=== PATIENT | male | born 1980 | race Caucasian/White ===

== ENCOUNTER 2016-05-16 18:23 | Emergency (ER) | payer OTHER, MEDICAID ==
[~2016-05-16] VITALS: Ht 180.3 cm; Wt 124.7 kg
[~2016-05-16 18:23] MED LIST: FAMO20TA5 PO
--- OUTSIDE RECORDS SUMMARY | 2016-05-16 18:28 | XMS REPORT ---
Author Author BONNIE GRAVES [facility] [place] eClinicalWorks Address Unknown Phone Unavailable Care Team Providers Care Cell Attendant Name Role Phone BONNIE GRAVES CP Unavailable Allergies, Adverse Reactions, Alerts Substance Reaction Event Type Penicillins neon rings on skin Non Drug Allergy Problems Problem Type Condition Code Onset Dates Condition Status Assessment Bronchitis J40 Active Medications Medication Code System Code Instructions Start Date End Date Status Dosage Zithromax Z-Derek [facility] [address]-41 250 MG Orally Once a day Feb 25, 2016 Mar 01, 2016 2 tablets on the first day, then 1 tablet daily for 4 days Promethazine-Codeine [facility] [address]-62 6.25-10 MG/5ML Orally q 4 h prn cough Feb 25, 2016 1-2 tsp Procedures Procedure Coding System Code Date Office Visit, Est Pt., Level 2 CPT-4 03402 Feb 25, 2016 Vital Signs Date/Time: Feb 25, 2016 Cardiac Monitoring Heart Rate 68 bpm Weight 287.1 lbs Height 71 in BMI 40.04 Index Blood Pressure Diastolic 81 mmHg Blood Pressure Systolic 130 mmHg Results No Known Results Summary Purpose eClinicalWorks Submission
[2016-05-16] MEDS ORDERED: NAPR500T2 PO (19:02)
[2016-05-16] MEDS ORDERED: Flexeril PO (19:02)
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
[2016-05-16 19:17] VITALS: BP 155/89
== END 2016-05-16 19:17 | disposition home or self-care (01) ==
LOC: EDUNIT# 18:23 → ER 18:25
DX: S13.9XXA Sprain of joints and ligaments of unspecified parts of neck, initial encounter (principal); V43.52XA Car driver injured in collision with other type car in traffic accident, initial encounter; Y92.414 Local residential or business street as the place of occurrence of the external cause; Y99.8 Other external cause status
CPT/HCPCS: 72125; 99282

== ENCOUNTER 2016-12-11 16:02 | Emergency (ER) | payer MEDICAID, OTHER ==
[~2016-12-11] VITALS: Ht 180.3 cm; Wt 104.3 kg
[~2016-12-11 16:02] MED LIST changes: +Flexeril PO; +NAPR500T2 PO
--- OUTSIDE RECORDS SUMMARY | 2016-12-11 16:07 | XMS REPORT ---
Author Author BONNIE GRAVES [facility] eClinicalWorks Address Unknown Phone Unavailable Care Team Providers Care Geotechnical Laboratory Technician Name Role Phone BONNIE GRAVES CP Unavailable Allergies, Adverse Reactions, Alerts Substance Reaction Event Type Penicillins neon rings on skin Non Drug Allergy Problems Problem Type Condition Code Onset Dates Condition Status Assessment Bronchitis J40 Active Medications Medication Code System Code Instructions Start Date End Date Status Dosage Zithromax Z-Derek [facility] [address]-67 250 MG Orally Once a day Feb 25, 2016 Mar 01, 2016 2 tablets on the first day, then 1 tablet daily for 4 days Promethazine-Codeine [facility] [address]-67 6.25-10 MG/5ML Orally q 4 h prn cough Feb 25, 2016 1-2 tsp Procedures Procedure Coding System Code Date Office Visit, Est Pt., Level 2 CPT-4 39852 Feb 25, 2016 Vital Signs Date/Time: Feb 25, 2016 Cardiac Monitoring Heart Rate 68 bpm Weight 287.1 lbs Height 71 in BMI 40.04 Index Blood Pressure Diastolic 81 mmHg Blood Pressure Systolic 130 mmHg Results No Known Results Summary Purpose eClinicalWorks Submission
--- OUTSIDE RECORDS SUMMARY | 2016-12-11 16:07 | XMS REPORT ---
Author Author WU FELIX Organization [facility] Address [address] [place] [address] Care Team Providers Care Subway Conductor Name Role Phone WU FELIX Unavailable PROBLEMS Type Condition ICD9-CM Code XVZ41-GO Code Onset Dates Condition Status SNOMED Code Problem Environmental allergies Z91.09 Active [id number] ALLERGIES Substance Reaction Event Type Date Status Penicillins neon rings on skin Non Drug Allergy Mar, Active SOCIAL HISTORY No smoking Hx information available PLAN OF CARE Activity Details Follow Up prn Reason: VITAL SIGNS Height 71 in 2016-03-31 Weight 286.6 lbs 2016-03-31 Temperature 97.6 degrees Fahrenheit 2016-03-31 Heart Rate 64 bpm 2016-03-31 Respiratory Rate 18 2016-03-31 BMI 39.97 kg/m2 2016-03-31 Blood pressure systolic 132 mmHg 2016-03-31 Blood pressure diastolic 76 mmHg 2016-03-31 MEDICATIONS Medication Instructions Dosage Frequency Start Date End Date Duration Status Singulair 10 MG Orally Once a day 1 tablet in the evening 24h Mar, 30 day(s) Active Doxycycline Hyclate 100 MG Orally every 12 hrs 1 capsule 12h Mar, Mar, 10 days Active Zyrtec Allergy 10 MG Orally Once a day 1 tablet 24h Mar, Apr, 30 day(s) Active Fluticasone Propionate 50 MCG/ACT Nasally Twice a day 1-2 spray in each nostril 12h Mar, 30 day(s) Active RESULTS No Results PROCEDURES Procedure Date Ordered Related Diagnosis Body Site DEPO MEDROL 40 MG/ML Mar 31, 2016 THER/PROPH/DIAG INJ, SC/IM Mar 31, 2016 Office Visit, Est Pt., Level 3 Mar 31, 2016 DEXAMETHASONE 20MG/5 ML (PER 1 MG) Mar 31, 2016 IMMUNIZATIONS Vaccine Route Administration Date Status DEXAMETHASONE 20MG/5 ML (PER 1 MG) IM Intramuscular Mar 31, 2016 Administered DEPO MEDROL 40 MG/ML IM Intramuscular Mar 31, 2016 Administered
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
[2016-12-11] MEDS ORDERED: ASPIRIN 81 MG CHEW (CHILDREN'S ASA) PO ONE (16:15)
[2016-12-11] MEDS ORDERED: LORazepam INJ 2 MG/ML (ATIVAN) VIAL ONE (16:15)
--- NOTE | 2016-12-11 16:15 | ED Chest Pain ---
General Stated Complaint: CHEST PAIN/TIGHTNESS Source: patient Exam Limitations: no limitations History of Present Illness Time seen by provider: 16:12 Initial Comments To ER with reports of central chest tightness and shortness of breath. This began about 325 this afternoon while he was walking back to work after being on his break. He is employed at [employer] and works both indoors and outdoors. He was not doing anything physically strenuous at the time of the onset of this pain. He states that while he was walking the pain went from absent to maximal intensity and under a minute and persisted for about 25 seconds and was associated with shortness of breath. He denies feeling anxious. He states that he still has the chest pain but currently only rated at 2 out of 10 and is without dyspnea. He has no personal history of heart disease. He see a nonsmoker. He states that over the past year he's lost about 90 pounds and exercises regularly. He states that his mother does have heart disease with early onset around age of 40. Timing/Duration: 1/2 hour, constant Severity/Quality: moderate, tightness Location: central Radiation: no radiation Activities at Onset: none ASA po CORK INSULATOR HELPER: No NTG SL CORK INSULATOR HELPER: No Associated Symptoms: No back pain, No diaphoresis, No dizziness, No nausea/ vomiting, shortness of breath Allergies and Home Medications Allergies Coded Allergies: Penicillins (Unverified Allergy, Mild, 06/12/09) Home Medications Naproxen 500 Mg Tablet.dr, 500 MG PO BID PRN for PAIN, #14 Prescribed by: MATILDE KNOTT on 05/16/161901 [ Flexeril ] , 5 MG PO TID PRN for PAIN, #21 Prescribed by: MATILDE KNOTT on 05/16/161901 Review of Systems Constitutional: see HPI EENTM: No Symptoms Reported Respiratory: See HPI, Shortness of Air Cardiovascular: See HPI, Chest Pain, Denies Edema, Denies Irregular Heart Rate , Denies Lightheadedness Gastrointestinal: No Symptoms Reported Genitourinary: No Symptoms Reported Musculoskeletal: no symptoms reported Skin: no symptoms reported Psychiatric/Neurological: No Symptoms Reported Endocrine: No Symptoms Reported Past Yuusmmf-Jibbyh-Dsyvrn Hx Patient Social History Recent Foreign Travel: No Contact w/Someone Who Travel: No Recent Hopitalizations: No Immunizations Up To Date Tetanus Booster (TDap): More than 5yrs Seasonal Allergies Seasonal Allergies: No Gastrointestinal Gastrointestinal Disorders: Gall Bladder Disease Musculoskeletal Musculoskeletal Disorders: Fractures Physical Exam Vital Signs Vital Sign - Last 12Hours 12/11/16 16:02 Temp 98.6 Pulse 96 Resp 18 B/P (MAP) 135/85 Pulse Ox 96 Capillary Refill : General Appearance: No Apparent Distress, WD/WN, Anxious HEENT: PERRL/EOMI, TMs Normal Neck: Full Range of Motion, Normal Inspection Respiratory: Normal Breath Sounds, No Accessory Muscle Use, No Respiratory Distress Cardiovascular: Regular Rate, Rhythm, Normal Peripheral Pulses Gastrointestinal: Normal Bowel Sounds, Non Tender, Soft Extremity: Normal Capillary Refill, Normal Inspection Neurologic/Psychiatric: Alert, Oriented x3, No Motor/Sensory Deficits Skin: Normal Color, Warm/Dry Progress/Results/Core Measures Results/Orders Lab Results Laboratory Tests Test 12/11/16 16:15 Range/Units White Blood Count 8.3 4.3-11.0 10^3/uL Red Blood Count 5.43 4.35-5.85 10^6/uL Hemoglobin 14.2 13.3-17.7 G/DL Hematocrit 43 40-54 % Mean Corpuscular Volume 79 L 80-99 FL Mean Corpuscular Hemoglobin 26 25-34 PG Mean Corpuscular Hemoglobin Concent 33 32-36 G/DL Red Cell Distribution Width 13.7 10.0-14.5 % Platelet Count 167 130-400 10^3/uL Mean Platelet Volume 9.9 7.4-10.4 FL Neutrophils (%) (Auto) 86 H 42-75 % Lymphocytes (%) (Auto) 5 L 12-44 % Monocytes (%) (Auto) 8 0-12 % Eosinophils (%) (Auto) 0 0-10 % Basophils (%) (Auto) 0 0-10 % Neutrophils # (Auto) 7.2 1.8-7.8 X 10^3 Lymphocytes # (Auto) 0.4 L 1.0-4.0 X 10^3 Monocytes # (Auto) 0.7 0.0-1.0 X 10^3 Eosinophils # (Auto) 0.0 0.0-0.3 10^3/uL Basophils # (Auto) 0.0 0.0-0.1 10^3/uL Neutrophils % (Manual) 88 % Lymphocytes % (Manual) 8 % Monocytes % (Manual) 4 % Blood Morphology Comment NORMAL Prothrombin Time 13.7 12.2-14.7 SEC INR Comment 1.0 0.8-1.4 Activated Partial Thromboplast Time 26 24-35 SEC D-Dimer 0.27 0.00-0.49 UG/ML Sodium Level 136 135-145 MMOL/L Potassium Level 3.8 3.6-5.0 MMOL/L Chloride Level 101 98-107 MMOL/L Carbon Dioxide Level 25 21-32 MMOL/L Anion Gap 10 5-14 MMOL/L Blood Urea Nitrogen 25 H 7-18 MG/DL Creatinine 1.09 0.60-1.30 MG/DL Estimat Glomerular Filtration Rate > 60 BUN/Creatinine Ratio 23 Glucose Level 104 70-105 MG/DL Calcium Level 9.1 8.5-10.1 MG/DL Magnesium Level 1.8 1.8-2.4 MG/DL Total Bilirubin 1.1 H 0.1-1.0 MG/DL Aspartate Amino Transf (AST/SGOT) 33 5-34 U/L Alanine Aminotransferase (ALT/SGPT) 47 0-55 U/L Alkaline Phosphatase 82 40-136 U/L Myoglobin 129.7 H 10.0-92.0 NG/ML Troponin I < 0.30 <0.30 NG/ML Total Protein 6.5 6.4-8.2 GM/DL Albumin 4.1 3.2-4.5 GM/DL My Orders Orders - MATILDE KNOTT APRN Cbc With Automated Diff (12/11/16 16:11) Magnesium (12/11/16 16:11) Ekg Tracing (12/11/16 16:11) Cardiac Profile 1 (12/11/16 16:11) Comprehensive Metabolic Panel (12/11/16 16:11) Myoglobin Serum (12/11/16 16:11) Protime With Inr (12/11/16 16:11) Partial Thromboplastin Time (12/11/16 16:11) Monitor-Rhythm Ecg Trace Only (12/11/16 16:11) Lipid Panel (12/12/16 06:00) Aspirin Chewable Tablet (Baby Aspirin Ch (12/11/16 16:15) Saline Lock/Iv-Start (12/11/16 16:11) Lorazepam Injection (Ativan Injection) (12/11/16 16:30) Lorazepam Injection (Ativan Injection) (12/11/16 16:15) Manual Differential (12/11/16 16:15) Fibrin Degradation Products (12/11/16 16:15) Chest Pa/Lat (2 View) (12/11/16 16:55) Medications Given in ED Current Medications Medications Dose Ordered Sig/Jono Route Start Time Stop Time Status Last Admin Dose Admin Aspirin 324 mg ONCE ONCE PO 12/11/16 16:15 12/11/16 16:16 DC 12/11/16 16:22 324 MG Lorazepam 0.5 mg ONCE ONCE IVP 12/11/16 16:30 12/11/16 16:31 DC 12/11/16 16:23 0.5 MG Vital Signs/I&O Vital Sign - Last 12Hours 12/11/16 16:02 Temp 98.6 Pulse 96 Resp 18 B/P (MAP) 135/85 Pulse Ox 96 Departure Communication (Admissions) Progress Notes 1801- he states that his chest pain is gone and he feels less "foggy headed". This is after the Ativan. Impression Impression: Primary Impression: Chest pain Disposition: 01 HOME, SELF-CARE Condition: Stable Departure-Patient Inst. Decision time for Depature: 17:58 Referrals: [facility] (PCP/Family) Primary Care Physician FRANCISCA CHAVARRIA MD FACP FAC CCDS Misty WAYNE MD, BASHAR J MD Patient Instructions: Chest Pain (DC) Add. Discharge Instructions: 1. Call one of the cardiologists of your choosing tomorrow to make an appointment for further testing 2. Return to ER for any concerns 3. MATILDE KNOTT FILLING STATION ATTENDANT Dec 11, 2016 16:15
[2016-12-11 16:27] LABS: BASOPHILS % (AUTO) 0 % (0-10); EOSINOPHILS % (AUTO) 0 % (0-10); LYMPHOCYTES # (AUTO) 0.4 X 10^3 (1.0-4.0); LYMPHOCYTES % (AUTO) 5 % (12-44); MEAN CORPUSCULAR HEMOGLOBIN 26 PG (25-34); MEAN CORPUSCULAR HGB CONC 33 G/DL (32-36); MEAN CORPUSCULAR VOLUME 79 FL (80-99); MEAN PLATELET VOLUME 9.9 FL (7.4-10.4); MONOCYTES # (AUTO) 0.7 X 10^3 (0.0-1.0); MONOCYTES % (AUTO) 8 % (0-12); NEUTROPHILS # (AUTO) 7.2 X 10^3 (1.8-7.8); NEUTROPHILS % (AUTO) 86 % (42-75); PLATELET COUNT 167 10^3/uL (130-400); RED BLOOD COUNT 5.43 10^6/uL (4.35-5.85); RED CELL DISTRIBUTION WIDTH 13.7 % (10.0-14.5); WHITE BLOOD COUNT 8.3 10^3/uL (4.3-11.0)
[2016-12-11] MEDS ORDERED: LORazepam INJ 2 MG/ML (ATIVAN) VIAL IVP ONE (16:30)
[2016-12-11 16:39] LABS: PROTHROMBIN TIME PATIENT 13.7 SEC (12.2-14.7)
[2016-12-11 16:43] LABS: ALANINE AMINOTRANSFERASE 47 U/L (0-55); ALBUMIN 4.1 GM/DL (3.2-4.5); ANION GAP 10 MMOL/L (5-14); ASPARTATE AMINO TRANSFERASE 33 U/L (5-34); BILIRUBIN,TOTAL 1.1 MG/DL (0.1-1.0); BLOOD UREA NITROGEN 25 MG/DL (7-18); BUN/CREATININE RATIO 23; CALCIUM 9.1 MG/DL (8.5-10.1); CARBON DIOXIDE 25 MMOL/L (21-32); CHLORIDE 101 MMOL/L (98-107); CREATININE SERUM 1.09 MG/DL (0.60-1.30); GFR ESTIMATED > 60; GLUCOSE 104 MG/DL (70-105); MAGNESIUM 1.8 MG/DL (1.8-2.4); POTASSIUM 3.8 MMOL/L (3.6-5.0); SODIUM 136 MMOL/L (135-145); TOTAL PROTEIN 6.5 GM/DL (6.4-8.2)
[2016-12-11 16:47] LABS: LYMPHOCYTES % (MANUAL) 8 %; NEUTROPHILS % (MANUAL) 88 %
[2016-12-11 16:49] LABS: MYOGLOBIN SERUM 129.7 NG/ML (10.0-92.0)
--- NOTE | 2016-12-11 17:39 | Diagnostic Imaging Report ---
INDICATION: Chest pain. COMPARISON: 11/28/2013. FINDINGS: Two views of the chest are obtained. Heart size is normal. The pulmonary vessels appear unremarkable. There is no pneumothorax, mediastinal widening, or pleural fluid demonstrated. The lungs are clear. Osseous structures appear unremarkable. IMPRESSION: No acute abnormality is demonstrated. Dictated by: Dictated on workstation # [id number]
[2016-12-11 18:56] VITALS: BP 105/74
== END 2016-12-11 18:56 | disposition home or self-care (01) ==
LOC: EDUNIT# 16:02 → ER 16:04
DX: R07.89 Other chest pain (principal); Z87.81 Personal history of (healed) traumatic fracture; Z87.19 Personal history of other diseases of the digestive system; Z82.49 Family history of ischemic heart disease and other diseases of the circulatory system
CPT/HCPCS: 36415; 71020; 80053; 83735; 83874; 84484; 85007; 85027; 85379; 85610; 85730; 93005; 93041; 96374

== ENCOUNTER 2022-01-30 18:17 | Emergency (ER) | payer MEDICAID, OTHER ==
[~2022-01-30 18:17] MED LIST changes: +NAPR-1073 PO; -NAPR500T2 PO
[2022-01-30] MEDS ORDERED: CEPHALEXIN 250 MG (KEFLEX) CAP PO SCH (18:30)
[2022-01-30] MEDS ORDERED: TETANUS,DIPTH,PERTUSS P/F (BOOSTRIX) 0.5 ML VIAL IM ONE (18:30)
[2022-01-30] MEDS ORDERED: CEPH500T PO (18:34)
--- NOTE | 2022-01-30 18:34 | ED Integumentary General ---
General Chief Complaint: Skin/Wound Problems Stated Complaint: GLASS IN RIGHT FOOT Nursing Triage Note: PT ARRIVAL TO ER VIA PRIVATE VEHICLE WITH COMPLAINT OF AVULSION TO BOTTOM OF RIGHT FOOT. PT WAS IN GARAGE AND STEPPED ON GLASS. PT WAS ABLE TO PULL GLASS OUT OF FOOT. NO BLEEDING AT THIS TIME. Source: patient Exam Limitations: no limitations History of Present Illness Date Seen by Provider: Jan 30, 2022 Time Seen by Provider: 18:31 Initial Comments To ER by private vehicle with reports of a puncture wound to the plantar surface of the right foot from a piece of glass in his garage. Tetanus is not up-to-date. This was bleeding extensively at home, he elevated the foot in route to the hospital and bleeding subsided. Timing/Duration: just prior to arrival, constant Severity: mild Location: feet Possible Cause: no cause identified Associated Symptoms: denies symptoms Allergies and Home Medications Allergies Coded Allergies: Penicillins (Unverified Allergy, Mild, 06/12/09) Patient Home Medication List Home Medication List Reviewed: Yes Naproxen (EC-Naprosyn) 500 Mg Tablet.dr, 500 MG PO BID PRN for PAIN Prescribed by: MATILDE KNOTT on 05/16/161901 [ Flexeril ] , 5 MG PO TID PRN for PAIN Prescribed by: MATILDE KNOTT on 05/16/161901 Review of Systems Review of Systems Constitutional: see HPI EENTM: see HPI Respiratory: no symptoms reported Cardiovascular: no symptoms reported Genitourinary: no symptoms reported Musculoskeletal: no symptoms reported Skin: see HPI Psychiatric/Neurological: No Symptoms Reported Endocrine: No Symptoms Reported Hematologic/Lymphatic: No Symptoms Reported Past Yrvshyc-Jjipel-Nuzsqp Hx Patient Social History Tobacco Use?: No Use of E-Cig and/or Vaping dev: No Substance use?: No Alcohol Use?: No Pt feels they are or have been: No Immunizations Up To Date Tetanus Booster (TDap): More than 5yrs Influenza Vaccine Up-to-Date: No; Not Current Seasonal Allergies Seasonal Allergies: No Past Medical History Surgeries: No Respiratory: No Cardiac: Yes (VARICOSE VEINS) Neurological: No Gastrointestinal: Yes Gall Bladder Disease Musculoskeletal: Yes (BROKEN NOSE, FX SKULL) Fractures Endocrine: No Cancer: No Psychosocial: No Integumentary: No Blood Disorders: No Physical Exam Vital Signs Vital Signs - First Documented 01/30/22 18:24 Temp 36.5 Pulse 82 Resp 18 B/P (MAP) 157/96 (116) Pulse Ox 99 O2 Delivery Room Air Capillary Refill : Less Than 3 Seconds General Appearance: WD/WN, no apparent distress Neck: non-tender, full range of motion Respiratory: no respiratory distress, no accessory muscle use Neurologic/Psychiatric: alert, normal mood/affect, oriented x 3 Skin: normal color, warm/dry Skin Problem Location: lower extremities Skin Problem Character: other (There is a 1 cm V-shaped laceration to the plantar surface of the arch of the right foot with no active bleeding at this time. Patient was able to remove the glass at home.) Progress/Results/Core Measures Results/Orders Vital Signs/I&O 01/30/22 18:24 Temp 36.5 Pulse 82 Resp 18 B/P (MAP) 157/96 (116) Pulse Ox 99 O2 Delivery Room Air Blood Pressure Mean: 116 Departure Communication (Admissions) Wound irrigated with chlorhexidine/saline solution, no heavy bleeding, antibiotic ointment applied then gauze then Coban. No primary closure. Impression Primary Impression: Puncture wound of foot Disposition: 01 HOME, SELF-CARE Condition: Stable Departure-Patient Inst. Decision time for Depature: 18:33 Referrals: [facility] ([place]P/Family) Primary Care Physician Patient Instructions: Wound Care Add. Discharge Instructions: Return to ER for any sign of infection such as redness swelling or increasing pain. Take the antibiotics as directed. Keep this covered with a dressing tonight, you can put just a simple Band-Aid over this tomorrow. All discharge instructions reviewed with patient and/or family. Voiced understanding. Scripts Cephalexin (Cephalexin) 500 Mg Tablet 500 MG PO TID, #14 TAB Prov: MATILDE KNOTT APRN 01/30/22 Work/School Note: Work Release Form Date Seen in the Emergency Department: Jan 30, 2022 Return to Work: Feb 02, 2022 MATILDE KNOTT APRN Jan 30, 2022 18:34
[2022-01-30 19:29] VITALS: BP 131/87
== END 2022-01-30 19:33 | disposition home or self-care (01) ==
LOC: EDUNIT# 18:17 → ER 18:19
DX: S91.331A Puncture wound without foreign body, right foot, initial encounter (principal); Z23 Encounter for immunization; Z28.310 Unvaccinated for COVID-19; W25.XXXA Contact with sharp glass, initial encounter; Y92.59 Other trade areas as the place of occurrence of the external cause
CPT/HCPCS: 90715; 99283

== ENCOUNTER → 2022-05-24 | Outpatient (CLI) | payer OTHER ==
[~2022-05-24] MED LIST changes: +CEPH500T PO
--- NOTE | 2022-05-24 14:03 | Diagnostic Imaging Report ---
EXAMINATION: CT abdomen and pelvis without contrast. TECHNIQUE: Multiple contiguous axial images were obtained through the abdomen and pelvis without the use of intravenous contrast. All CT scans use one or more of the following dose optimizing techniques: automated exposure control, MA and/or KvP adjustment based on patient size and exam type or iterative reconstruction. HISTORY: HERNIA COMPARISON: None available. FINDINGS: Lung bases: The lung bases are clear. Solid organs: The liver is normal. The gallbladder is normal. There is no biliary ductal dilation. Pancreas is normal. Spleen is normal. Adrenal glands are normal. The kidneys are normal without visualized calculus or hydronephrosis. Bowel: The stomach and small bowel are normal without obstruction. The colon and appendix are normal. Peritoneum: There is no intraperitoneal free fluid or free air. No suspicious lymphadenopathy. Vasculature: Normal without aneurysm. Musculoskeletal: No suspicious osseous lesion or compression fracture. There is a fat-containing periumbilical hernia through a 1.9 cm defect. Pelvis: The prostate gland is normal. The urinary bladder is normal. IMPRESSION: 1. No acute abnormality in the abdomen or pelvis. 2. A fat-containing periumbilical hernia through a 1.9 cm defect. Dictated by: Dictated on workstation # [id number]
== END ==
LOC: RAD 13:36
PROVIDERS: ATTEND Nurse Practitioner
DX: Z01.89 Encounter for other specified special examinations (principal); K42.9 Umbilical hernia without obstruction or gangrene
CPT/HCPCS: 74176

== ENCOUNTER 2022-11-29 05:29 | Outpatient (CLI) | payer OTHER ==
[~2022-11-29] VITALS: Ht 180.3 cm; Wt 136.4 kg
[2022-11-30] MEDS ORDERED: HYDR-3817 PO (10:25)
== END 2022-11-29 10:55 | disposition home or self-care (01) ==
LOC: PREOP 05:29
PROVIDERS: ATTEND Surgery
DX: Z01.818 Encounter for other preprocedural examination (principal)

== ENCOUNTER 2022-11-30 10:04 | Day surgery (SDC) | payer OTHER ==
[~2022-11-30] VITALS: Ht 180.3 cm; Wt 136.4 kg
[2022-11-30] VITALS (10 sets, daily range): BP systolic 107–146; BP diastolic 61–88
[2022-11-30] MEDS ORDERED: CLINDAMYCIN 600 MG/50 ML IVPB 50 ML IV ONE (10:15)
--- NOTE | 2022-11-30 10:24 | Progress Note-Pre Operative ---
Pre-Operative Progress Note Date H&P Reviewed: Nov 30, 2022 Time H&P Reviewed: 10:20 History & Physical: H&P Reviewed, Patient Examed, No changes noted Pre-Operative Diagnosis: Umbilical hernia LYNDSAY MENDOZA STOCKROOM COORDINATOR Nov 30, 2022 10:24
[2022-11-30] MEDS ORDERED: HYDR-3817 PO (10:25)
--- NOTE | 2022-11-30 10:25 | Discharge Inst-Surgical ---
D/C Lap Instructions-KIDO Reconcile Patient Problems Problems Reviewed?: Yes New, Converted, or Re-Newed RX: RX on Chart Follow Up Appt in 2 weeks Activity as tolerated No driving for 24 hours No driving while on pain medications Incentive Spirometry use every 2 hours while awake Regular Diet Symptoms to Report: Fever over 101 degree F, Nausea/Vomiting Infection Signs and Symptoms to report: Increased redness, Foul odor of wound, Increased drainage Bathing instructions: May shower Operative Area Clean/Dry; Keep incision clean/dry If any problems/questions: Contact your physician or go to Emergency Room LYNDSAY MENDOZA APRN Nov 30, 2022 10:25
[2022-11-30] MEDS ORDERED: HYDROcodone/ACETAMINOPHEN 5 MG/325 MG TABLET PO ONE (10:30)
[2022-11-30] MEDS ORDERED: morphine INJ 10 MG/ML 1ML (SYR OR VIAL) IVP PRN (10:30)
[2022-11-30] MEDS ORDERED: ACETAMINOPHEN 325 MG TABLET PO PRN (10:30)
[2022-11-30] MEDS ORDERED: ONDANSETRON 4 MG/2 ML (SDV) Z0FRAN IVP PRN ×2 (10:30→12:30)
[2022-11-30] MEDS ORDERED: LIDOCAINE 1% w/EPI 1:100,000 20 ML VIAL ONE (10:42)
[2022-11-30] MEDS: LACTATED RINGERS 1,000 ML IV PRN ×2 (10:47→11:50)
[2022-11-30] MEDS ORDERED: MIDAZOLAM INJ 2 MG/2 ML VIAL ONE (11:19)
[2022-11-30] MEDS ORDERED: fentaNYL INJECTION 100 MCG/2 ML VIAL ONE ×2 (11:19→12:31)
[2022-11-30] MEDS ORDERED: LIDOCAINE 1% w/EPI 1:100,000 20 ML VIAL INJ ONE (11:45)
[2022-11-30] MEDS ORDERED: NEOSTIGMINE 1 MG/1ML 10 ML VIAL ONE (12:06)
[2022-11-30] MEDS ORDERED: proPOfol 200 MG/20 ML (DIPRIVAN) VIAL IV ONE (12:06)
[2022-11-30] MEDS ORDERED: GLYCOPYRROLATE INJ 0.2 MG/ML 2 ML VIAL ONE (12:06)
[2022-11-30] MEDS ORDERED: LIDOCAINE PF 2% 5 ML VIAL ONE (12:06)
[2022-11-30] MEDS ORDERED: ROCURONIUM 50 MG/5 ML (ZEMURON) VIAL IV ONE (12:06)
[2022-11-30] MEDS ORDERED: SEVOFLURANE (ULTANE) 15 ML INHAL SOLN ONE (12:08)
--- NOTE | 2022-11-30 12:24 | Progress Note-Post Operative ---
Post-Operative Progess Note Surgeon (s)/Rock Mason (s) Surgeon EMILY GROVER MD Rock Mason: timmy fair MOVIE STUNT PERFORMER Pre-Operative Diagnosis Umbilical hernia Post-Operative Diagnosis same(2x2cm) Procedure & Operative Findings Date of Procedure 11/30/22 Procedure Performed/Findings open umbilical hernia repair with mesh. Anesthesia Type get Estimated Blood Loss Estimated blood loss (mL): minimal Specimens/Packing Specimens Removed hernia sac EMILY GROVER MD Nov 30, 2022 12:24
--- NOTE | 2022-11-30 12:29 | Anesthesia-General Post-Op ---
General Patient Condition Mental Status/LOC: Same as Preop Cardiovascular: Satisfactory Nausea/Vomiting: Absent Respiratory: Satisfactory Pain: Controlled Complications: Absent Post Op Complications Complications None Follow Up Care/Instructions Patient Instructions None needed. Anesthesia/Patient Condition Patient Condition Patient is doing well, no complaints, stable vital signs, no apparent adverse anesthesia problems. No complications reported per nursing. KATIA SHETH CRNA Nov 30, 2022 12:29
[2022-11-30] MEDS ORDERED: fentaNYL INJECTION 100 MCG/2 ML VIAL IVP ONE (12:30)
[2022-11-30] MEDS ORDERED: HYDROmorphone INJECTION 2 MG/ML VIAL IV ONE (12:30)
--- NOTE | 2022-11-30 17:04 | OPERATIVE REPORT ---
DATE OF SERVICE: 11/30/2022 PREOPERATIVE DIAGNOSIS: Symptomatic reducible umbilical hernia. POSTOPERATIVE DIAGNOSIS: Symptomatic reducible umbilical hernia with a defect approximately 2 x 2 cm in size. PROCEDURE: Open umbilical hernia repair with mesh. SURGEON: Emily Grover MD INSURANCE ACCOUNT ASSISTANT: Baldo Braun APRN ANESTHESIA: General endotracheal. ESTIMATED BLOOD LOSS: Minimal. FINDINGS: Fascial wall defect approximately 2 x 3 cm in size. Nothing within the hernia sac. DISPOSITION: The patient tolerated the procedure well. INDICATIONS: The patient is a 41-year-old male who states that he developed an outpouching in the supraumbilical region approximately one year ago. He states that over time, this lesion has grown larger in size and become painful. He reports that he went to the [facility] where he was found to have an umbilical hernia. Umbilical hernia was symptomatic and he was referred to us where he was examined and found to have a reducible umbilical hernia, which was tender to palpation. He is otherwise eating well and having normal bowel movements. DESCRIPTION OF PROCEDURE: The patient was brought to the operating room, laid supine on the table. After adequate IV pain and sedative medications and general endotracheal intubation, the abdomen was prepped and draped in standard surgical fashion. A 0.5% Marcaine with epinephrine was then used to anesthetize the overlying skin in the supraumbilical rim and a crescent-shaped skin incision made using a #15 blade. The subcutaneous tissue was then dissected using electrocautery. The hernia sac was identified and completely dissected out with blunt dissection as well as electrocautery. We proceeded with the dissection to the fascial base and then the hernia sac was opened using Metzenbaum scissors. There was nothing within the hernia sac. The hernia sac was then fully excised under direct visualization using electrocautery. The fascial defect was approximately 2 x 2 cm in size. A 6.5 coated polypropylene mesh was then placed into the defect and sutured transfascially to the mesh using interrupted 0 Prolene sutures. Good hemostasis was observed. The subcutaneous tissue was then reapproximated using 3-0 Vicryl interrupted sutures and the skin was closed using 4-0 Monocryl running subcuticular suture. Wound was then cleaned and covered with Dermabond. The umbilicus was then filled with tonsil sponges followed by 4 x 4 gauze followed by large Op-Site followed by abdominal binder. The patient tolerated the procedure well. We will start IV and oral pain medication as well as a clear liquid diet. Once he is tolerating clears, has good pain control with oral pain medications, ambulating well, we will discharge him home where he will be instructed to wear the abdominal binder and do no heavy lifting or exertion for the next 2 weeks. We will also have him continue to wear the pressure dressing along the umbilicus for the next 5 days and then removed. Job ID: [id number] DocumentID: [id number] Dictated Date: 11/30/2022 12:29:58 Yarn Inspector Date: 11/30/2022 17:00:00 Dictated By: EMILY GROVER MD
== END 2022-11-30 14:40 ==
LOC: SDC 10:04
PROVIDERS: ATTEND Surgery
DX: K42.9 Umbilical hernia without obstruction or gangrene (principal); Z28.310 Unvaccinated for COVID-19
CPT/HCPCS: 87081

== ENCOUNTER → 2022-12-14 | Outpatient (CLI) | payer OTHER ==
[~2022-12-14] MED LIST changes: +HYDR-3817 PO
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
--- NOTE | 2022-12-14 15:59 | Diagnostic Imaging Report ---
INDICATION: Leg pain. TECHNIQUE: A noninvasive study was performed with ankle-brachial indices. FINDINGS: On the right side, the ankle brachial index was 1.33 for the posterior tibial artery, 1.14 for the dorsalis pedis, and 1.16 at the digital level. On the left side, the index was 1.32 for posterior tibial artery, 1.06 for dorsalis pedis, and 0.85 at the digital level. Waveforms were symmetric. IMPRESSION: No significant peripheral vascular disease is suspected. Slight decreased index at the digital level on the left side may be technical or small vessel disease. Dictated by: Dictated on workstation # [id number]
== END ==
LOC: RAD 07:42
PROVIDERS: ATTEND Family Medicine
DX: Z01.89 Encounter for other specified special examinations (principal); M50.323 Other cervical disc degeneration at C6-C7 level; M48.02 Spinal stenosis, cervical region
CPT/HCPCS: 72141; 93922